=== PATIENT | male | born 1965 | race Caucasian/White ===

== ENCOUNTER → 2017-08-16 16:09 | Outpatient (CLI) | payer BC, SELFPAY ==
[2017-08-16 17:53] LABS: Absolute Lymphocyte Count 4.05 X10^3/ul (0.83-4.51); Absolute Neutrophil Count 4.4 X10^3/uL (2.0-7.7); Basophil# 0.08 X10^3/uL; Basophil% 0.8 % (0-1); Eosinophil# 0.31 X10^3/uL; Eosinophils% 3.2 % (0-5); Hematocrit 43.2 % (40-54); Hemoglobin 14.7 g/dl (13.0-16.5); Lymphocyte # 4.05 X10^3/ul (4.0); Mean Corpuscular Hgb 31.1 pg (27.0-32.0); Mean Corpuscular Volume 91.5 fL (80-94); Monocyte# 0.74 X10^3/uL; Monocyte% 7.7 % (0-10); Neutrophil # 4.44 X10^3/uL (2.7-7.7); Platelet Count 320 K/mm3 (150-450); RBC Distribution Width CV 14.4 % (11.6-14.6); RBC Distribution Width SD 47.2 fl (35.1-43.9); Red Blood Count 4.72 M/mm3 (4.6-6.2); White Blood Count 9.7 K/mm3 (4.4-11.0)
[2017-08-16 17:55] LABS: POSITIVE COUNT NO; POSITIVE DIFFERENTIAL NO; POSITIVE MORPHOLOGY NO
[2017-08-16 18:06] LABS: CRP 8.19 mg/L (0.0-3.0)
[2017-08-16 18:54] LABS: Erythrocyte Sedimentation Rate 17 mm/hr (0-20)
== END ==
PROVIDERS: Family Provider Family Medicine; PCP Family Medicine; Visit Provider Specialist
DX: T84.032A Mechanical loosening of internal right knee prosthetic joint, initial encounter (principal)
CPT/HCPCS: 36415; 85025; 85652; 86140

== ENCOUNTER 2017-11-01 11:52 | Inpatient (IN) | payer BC, SELFPAY ==
--- NOTE | 2017-10-19 16:00 | RAD_ITS ---
STUDY: X-RAY CHEST REASON FOR EXAM: Male, 52 years old. Preop. TECHNIQUE: PA and lateral views of the chest. COMPARISON: None. FINDINGS: The lungs are clear and expanded. There is no demonstrated pleural abnormality. Normal size heart. Normal mediastinum and jose. Normal visualized pulmonary arteries. Normal visualized aortic arch and descending thoracic aorta. There are early degenerative changes and minor levoscoliosis of the lower thoracic spine. There are old healed fracture deformities of the posterolateral right 3-8 ribs. There is no demonstrated abnormality of the visualized soft tissue structures of the upper abdomen. RAD/Chest PA and Lateral IMPRESSION: No acute cardiopulmonary pathology. Electronically Signed: Clint Rivera MD at 15:02 EDT , Service support ,
--- NOTE | 2017-10-20 15:13 | SDCEKG_ITS ---
Test Reason : Blood Pressure : / mmHG Vent. Rate : 063 BPM Atrial Rate : 063 BPM P-R Int : 130 ms QRS Dur : 114 ms QT Int : 396 ms P-R-T Axes : 024 036 061 degrees QTc Int : 405 ms Normal sinus rhythm Normal ECG Confirmed by JONNY CABRERA MD ([id number]), department editor CALEB INIGUEZ ([id number] on 10/26/2017 6:27:04 PM Referred By: READER WIDST Confirmed By:OJNNY CABRERA MD
[2017-10-24 16:18] LABS: Anion Gap 7 (5-15); BUN 20 mg/dL (7-18); BUN/Creat Ratio 16.3 RATIO (10-20); Calcium,Total 8.8 mg/dL (8.5-10.1); Chloride 103 mmol/L (98-107); Creatinine, Serum 1.23 mg/dL (0.70-1.30); EST Glomerular Filtration Rate 65 mL/min (>60); Est Glom Filt Rate - Afr Amer 79 mL/min (>60); Glucose 103 mg/dL (74-106); Sodium Level 142 mmol/L (136-145)
[2017-11-01] VITALS (10 sets, daily range): BP systolic 142–165; BP diastolic 57–95; PULSE 61–82; RESP 14–18; TEMP 36.5–36.8; O2SAT 92–98; BMI 27.6
[2017-11-01 12:27] LABS: Hematocrit 46.2 % (40-54); Hemoglobin 15.4 g/dl (13.0-16.5); Mean Corp Hgb Conc 33.3 g/gl (32-36); Mean Corpuscular Hgb 31.4 pg (27.0-32.0); Mean Corpuscular Volume 94.1 fL (80-94); Mean Platelet Vol. 9.8 fl (6.2-12.0); Platelet Count 274 K/mm3 (150-450); RBC Distribution Width CV 14.9 % (11.6-14.6); Red Blood Count 4.91 M/mm3 (4.6-6.2); White Blood Count 9.1 K/mm3 (4.4-11.0)
[2017-11-01 12:29] LABS: Scan Indicated on CBC? Y/N NO
[2017-11-01] MEDS: Acetaminophen 500 MG Tablet 1000 MG PO ×2 (12:31→22:00)
[2017-11-01] MEDS: oxyCODONE HCl Cr 10 MG Tablet PO (12:31)
[2017-11-01] MEDS: Celecoxib 200 MG Capsule 400 MG PO (12:32)
[2017-11-01] MEDS: Cefazolin 2 GM in 0.9% Normal Saline 100 ML IV (13:46)
--- NOTE | 2017-11-01 16:55 | PCM.OPRPT ---
Report of Operation Date of Procedure: 11/01/17 Pre-Operative Diagnosis: 1. Arthrofibrosis right TKA. 2. Right TKA aseptic loosening Post-Operative Diagnosis: 1. Arthrofibrosis right TKA. 2. Right TKA aseptic loosening Surgery/Procedure Performed:: Revision right TKA entire tibia and femoral components Description of Surgical Findings:: Stable knee with good patella tracking. sewage plant operator: Ludwin Sanchez Type of Anesthesia:: General Anesthesiologist: Kevin Johnson Special Medications: 2 g Ancef, 1 g TXA at incision, 1 g TXA closure, 10 mg Decadron, joint cocktail (5 mg Duramorph, 30 mL of 0.5% Ropivicaine, 1000 units of epinephrine, 30 mg of Toradol), 2 g Ancef after 2-1/2 hours of incision time Specimen's removed: 3 separate specimens were sent to microbiology Estimated Blood Loss (mL): 75 Fluids Replaced: 1800 mL crystalloid Description of Procedure: Implants used: Triathlon total knee implants were used Femur: Size 4 total stabilized right femoral component [id number] x 100 mm press-fit stem 25 mm security systems installer. Tibia: Size 3 universal tibial baseplate with 16 x 100 mm press fit stem with 5 mm medial augment Polyethylene: 19 mm TS X3 polyethylene insert Brief history operative indications: 52-year-old male with multiple surgical procedures on the right knee. Patient had arthrofibrosis and flexion extension mismatch in the office. She had continued pain from her total knee replacement and dysfunction. We discussed revision right total knee replacement and ruled out infection in the office. Patient demonstrated understanding of risk and benefits which include but were not limited to blood loss, DVTs, PEs, neurovascular damage, infection, general risk of anesthesia including loss of life. Patient wished to proceed was able to sign for consent. Procedure: On the date of procedure patient's right lower extremity was marked in the preoperative area. The patient was then taken back to the operating room where the patient was placed on the table in the supine position. All bony prominences were identified a well-padded. Anesthesia assumed control of the C-spine and airway and remained controlled throughout the remainder of the procedure. A tourniquet was placed on the right upper thigh and the leg was prepped in a sterile fashion. The surgeon then scrubbed at this time .Upon reentering the room right lower extremity was draped in a standard orthopedic fashion. A timeout was then called and everyone agreed upon the side, the site, the procedure to be performed, patient's identity and antibiotics given. An Esmarch bandage was used to exsanguinate the extremity and the tourniquet was placed up to 250 mmHg with the knee in flexion. A midline skin incision was made using the previous incision and extending the incision 1 cm proximally and distally and sharp dissection was taken down through skin subcutaneous tissue and fat. The standard medial parapatellar incision was made using the previous arthrotomy marked out by the previous FiberWire sutures and the patella was subluxed laterally. The deep MCL release was done and the synovectomy was performed. Synovectomy was performed starting in the medial gutter than the suprapatellar pouch and the lateral gutter re-creating the spaces. Synovium from the suprapatellar pouch was sent for culture. Next our attention was directed to the femur. TPS saw and flexible osteotome were used to sequentially separate the bone cement interface loosening the implant. Once the implant was appropriately loosened bone tamp was used to remove the implant with minimal bone loss Our attention was then turned to the tibia where the TPS saw flexible osteotome were used to sequentially separate the bone cement interface loosening the implant. Once the implant was adequately loosened stacked osteotomes were used to separate the implant from the bone and the implant was removed. At this time the cement mantle's were debrided. The patella was examined and found to be appropriate. We elected to leave the patella which was well fixed. At this time the knee was then flexed and reamers were placed reaming the femoral and tibial canals. Tibial canal was reamed to 16 mm and the reamer was left in place to make an intramedullary cut. Intramedullary was used to make a cleanup cut giving us a nice perpendicular cut to the mechanical axis. Based on the previous varus alignment we decided to make a 5 mm step cut medially and augment the medial tibial baseplate to minimize lateral tibial bone loss. Size 3 tibial baseplate was selected and fit appropriately. He was pinned in the appropriate rotation and the proximal tibia was prepped. We then reamed following the Ivan technique guide for a size B tibial cone. Trial cone was placed. The trial implant was placed and attention was directed towards the femur. Femur was then sequentially reamed to 24 mm for 125 mm stem. TCG trial was put into place and pinned in the appropriate rotation. We then took the knee throughout range of motion showing a well balanced knee in flexion and extension. The TCG trial was then used to make distal femoral and posterior condylar cuts. Once these cleanup cuts were made size 4 trial with 124 mm x 100 mm stem with a 25 mm security systems installer was placed. Knee was taken through range of motion and 19 mm polyethylene was found to be appropriate to ensure proper balancing and stability of the knee. Patella tracking, was then verified and corrected appropriately as needed. Patellar tracking was checked and deemed appropriate. Once we were happy the trial components were removed. It was copiously irrigated out with normal saline 6 L under low-pressure lavage. Cement restrictor was placed in the tibia. Bone ends were dried. Hemostasis was obtained. Cement was mixed. When the cement was ready the components were cemented into place starting with the tibia, and femur. The trial poly component was placed and the knee was placed in full extension. All excess cement was removed in the process. Once the cement had cured the tracking, alignment and balance were verified and a size 19mm polyethylene component was placed with its central pin. Once the final components were placed the wound was copiously irrigated with normal saline solution and the remainder of the periarticular injection was given. The wound was closed in a layer wallace fashion using #1 vicryl interrupted sutures for the arthrotomy, 2-0 interrupted Vicryl for the subcuticular layer and mia for final skin closure. A sterile compressive dressing was then placed. The patient was then awakened from anesthesia, transferred to the [place] and transferred to the PACU for recovery. Post op plan DVT ppx: Also, thigh high compression stockings Follow up: in office in 2 weeks for wound check PT: to start POD #0 at hospital, outpatient PT should be arranged. He will be on montelukast for history of fibrosis for 3 months. Doxycycline for 1 week as we follow cultures. My physician assistant spa director was a vital part of this case. He was important in appropriate retraction during the case, and protection of soft tissues during bony cuts. His intimate knowledge of the case and my steps aided in safe and expedient completion of the procedure as well as appropriate position of the leg during the case. He was also vital in assisting with closure under my direct supervision. Grafts/Implants Used: [place] triathlon total knee - Complications None - Admit VTE Documentation VTE Present on Admission: No VTE Mechan Device Prophylaxis: SCD's, Thigh High MILAGROS Hose VTE Pharm Prophylaxis ordered?: Yes
--- NOTE | 2017-11-01 17:04 | OP.PCM_ITS ---
Report of Operation Date of Procedure: 11/01/17 Pre-Operative Diagnosis: 1. Arthrofibrosis right TKA. 2. Right TKA aseptic loosening Post-Operative Diagnosis: 1. Arthrofibrosis right TKA. 2. Right TKA aseptic loosening Surgery/Procedure Performed:: Revision right TKA entire tibia and femoral components Description of Surgical Findings:: Stable knee with good patella tracking. depilatory painter: Ludwin Sanchez Type of Anesthesia:: General Anesthesiologist: Kevin Johnson Special Medications: 2 g Ancef, 1 g TXA at incision, 1 g TXA closure, 10 mg Decadron, joint cocktail (5 mg Duramorph, 30 mL of 0.5% Ropivicaine, 1000 units of epinephrine, 30 mg of Toradol), 2 g Ancef after 2-1/2 hours of incision time Specimen's removed: 3 separate specimens were sent to microbiology Estimated Blood Loss (mL): 75 Fluids Replaced: 1800 mL crystalloid Description of Procedure: Implants used: Triathlon total knee implants were used Femur: Size 4 total stabilized right femoral component [id number] x 100 mm press- fit stem 25 mm house repairer. Tibia: Size 3 universal tibial baseplate with 16 x 100 mm press fit stem with 5 mm medial augment Polyethylene: 19 mm TS X3 polyethylene insert Brief history operative indications: 52-year-old male with multiple surgical procedures on the right knee. Patient had arthrofibrosis and flexion extension mismatch in the office. She had continued pain from her total knee replacement and dysfunction. We discussed revision right total knee replacement and ruled out infection in the office. Patient demonstrated understanding of risk and benefits which include but were not limited to blood loss, DVTs, PEs, neurovascular damage, infection, general risk of anesthesia including loss of life. Patient wished to proceed was able to sign for consent. Procedure: On the date of procedure patient's right lower extremity was marked in the preoperative area. The patient was then taken back to the operating room where the patient was placed on the table in the supine position. All bony prominences were identified a well-padded. Anesthesia assumed control of the C- spine and airway and remained controlled throughout the remainder of the procedure. A tourniquet was placed on the right upper thigh and the leg was prepped in a sterile fashion. The surgeon then scrubbed at this time .Upon reentering the room right lower extremity was draped in a standard orthopedic fashion. A timeout was then called and everyone agreed upon the side, the site, the procedure to be performed, patient's identity and antibiotics given. An Esmarch bandage was used to exsanguinate the extremity and the tourniquet was placed up to 250 mmHg with the knee in flexion. A midline skin incision was made using the previous incision and extending the incision 1 cm proximally and distally and sharp dissection was taken down through skin subcutaneous tissue and fat. The standard medial parapatellar incision was made using the previous arthrotomy marked out by the previous FiberWire sutures and the patella was subluxed laterally. The deep MCL release was done and the synovectomy was performed. Synovectomy was performed starting in the medial gutter than the suprapatellar pouch and the lateral gutter re- creating the spaces. Synovium from the suprapatellar pouch was sent for culture. Next our attention was directed to the femur. TPS saw and flexible osteotome were used to sequentially separate the bone cement interface loosening the implant. Once the implant was appropriately loosened bone tamp was used to remove the implant with minimal bone loss Our attention was then turned to the tibia where the TPS saw flexible osteotome were used to sequentially separate the bone cement interface loosening the implant. Once the implant was adequately loosened stacked osteotomes were used to separate the implant from the bone and the implant was removed. At this time the cement mantle's were debrided. The patella was examined and found to be appropriate. We elected to leave the patella which was well fixed. At this time the knee was then flexed and reamers were placed reaming the femoral and tibial canals. Tibial canal was reamed to 16 mm and the reamer was left in place to make an intramedullary cut. Intramedullary was used to make a cleanup cut giving us a nice perpendicular cut to the mechanical axis. Based on the previous varus alignment we decided to make a 5 mm step cut medially and augment the medial tibial baseplate to minimize lateral tibial bone loss. Size 3 tibial baseplate was selected and fit appropriately. He was pinned in the appropriate rotation and the proximal tibia was prepped. We then reamed following the Ivan technique guide for a size B tibial cone. Trial cone was placed. The trial implant was placed and attention was directed towards the femur. Femur was then sequentially reamed to 24 mm for 125 mm stem. TCG trial was put into place and pinned in the appropriate rotation. We then took the knee throughout range of motion showing a well balanced knee in flexion and extension. The TCG trial was then used to make distal femoral and posterior condylar cuts. Once these cleanup cuts were made size 4 trial with 124 mm x 100 mm stem with a 25 mm house repairer was placed. Knee was taken through range of motion and 19 mm polyethylene was found to be appropriate to ensure proper balancing and stability of the knee. Patella tracking, was then verified and corrected appropriately as needed. Patellar tracking was checked and deemed appropriate. Once we were happy the trial components were removed. It was copiously irrigated out with normal saline 6 L under low-pressure lavage. Cement restrictor was placed in the tibia. Bone ends were dried. Hemostasis was obtained. Cement was mixed. When the cement was ready the components were cemented into place starting with the tibia, and femur. The trial poly component was placed and the knee was placed in full extension. All excess cement was removed in the process. Once the cement had cured the tracking, alignment and balance were verified and a size 19mm polyethylene component was placed with its central pin. Once the final components were placed the wound was copiously irrigated with normal saline solution and the remainder of the periarticular injection was given. The wound was closed in a layer wallace fashion using #1 vicryl interrupted sutures for the arthrotomy, 2-0 interrupted Vicryl for the subcuticular layer and mia for final skin closure. A sterile compressive dressing was then placed. The patient was then awakened from anesthesia, transferred to the r[place] and transferred to the PACU for recovery. Post op plan DVT ppx: Also, thigh high compression stockings Follow up: in office in 2 weeks for wound check PT: to start POD #0 at hospital, outpatient PT should be arranged. He will be on montelukast for history of fibrosis for 3 months. Doxycycline for 1 week as we follow cultures. My physician assistant mechanic was a vital part of this case. He was important in appropriate retraction during the case, and protection of soft tissues during bony cuts. His intimate knowledge of the case and my steps aided in safe and expedient completion of the procedure as well as appropriate position of the leg during the case. He was also vital in assisting with closure under my direct supervision. Grafts/Implants Used: [place] triathlon total knee - Complications None - Admit VTE Documentation VTE Present on Admission: No VTE Mechan Device Prophylaxis: SCD's, Thigh High MILAGROS Hose VTE Pharm Prophylaxis ordered?: Yes
[2017-11-01] MEDS: Lactated Ringers 1,000 ML 999 ML IV (17:51)
[2017-11-01] MEDS: Scopolamine 1mg/72hr Patch 1 PATCH TD (17:52)
--- NOTE | 2017-11-01 17:55 | RAD_ITS ---
STUDY: X-RAY - RIGHT KNEE REASON FOR EXAM: Male, 52 years old. Postop TECHNIQUE: 2 view(s) of the knee. COMPARISON: None. FINDINGS: Status post total right knee replacement. The hardware components are well aligned. Post surgical changes in the adjacent soft tissue. Skin mia are present anteriorly.. RAD/Knee 1 or 2 Views IMPRESSION: Status post total replacement of the knee with postsurgical changes. Electronically Signed: Aden Alonso DO at 19:53 EDT Tel [phone], Service support ,
[2017-11-01] MEDS: Morphine 2 MG/ML Syringe IV ×2 (20:39→23:18)
[2017-11-01] MEDS: Lactated Ringers 1,000 ML 125 ML IV (21:20)
[2017-11-01] MEDS: Ketorolac 15 MG/ML Vial IV (21:58)
[2017-11-01] MEDS: Cefazolin 1 GM/50 ML BAG IV (21:58)
[2017-11-01] MEDS: Doxycycline 100 MG CAPSULE PO (21:59)
[2017-11-01] MEDS: Senna/Docusate Sodium 1 Tablet 2 TABLET PO (22:00)
[2017-11-02 05:05] VITALS: BP 141/72; PULSE 53; RESP 18; TEMP 36.8; O2SAT 95
[2017-11-02] MEDS: Rivaroxaban 10 MG Tablet PO (05:12)
[2017-11-02] MEDS: Acetaminophen 500 MG Tablet 1000 MG PO ×3 (05:12→22:22)
[2017-11-02] MEDS: Cefazolin 1 GM/50 ML BAG IV (05:13)
[2017-11-02 06:24] LABS: Hematocrit 38.6 % (40-54); Hemoglobin 12.7 g/dl (13.0-16.5); Mean Corp Hgb Conc 32.9 g/gl (32-36); Mean Corpuscular Hgb 31.4 pg (27.0-32.0); Mean Corpuscular Volume 95.3 fL (80-94); Mean Platelet Vol. 10.2 fl (6.2-12.0); Platelet Count 229 K/mm3 (150-450); RBC Distribution Width CV 14.7 % (11.6-14.6); RBC Distribution Width SD 49.8 fl (35.1-43.9); Red Blood Count 4.05 M/mm3 (4.6-6.2); White Blood Count 13.8 K/mm3 (4.4-11.0)
[2017-11-02 06:30] LABS: Scan Indicated on CBC? Y/N NO
[2017-11-02 06:33] LABS: Anion Gap 6 (5-15); BUN 18 mg/dL (7-18); BUN/Creat Ratio 13.6 RATIO (10-20); Calcium,Total 8.4 mg/dL (8.5-10.1); Chloride 103 mmol/L (98-107); Creatinine, Serum 1.32 mg/dL (0.70-1.30); EST Glomerular Filtration Rate 60 mL/min (>60); Est Glom Filt Rate - Afr Amer 73 mL/min (>60); Estimated Creatinine Clearance 61.89 ml/min; Glucose 115 mg/dL (74-106); Potassium 4.4 mmol/L (3.5-5.1); Sodium Level 138 mmol/L (136-145)
--- NOTE | 2017-11-02 07:03 | PN.ORTHO_ITS ---
Subjective: The patient was resting in bed upon examination. Patient denies any chest pain , shortness of breath, dizziness, lightheadedness, nausea or vomiting, or calf pain. Pain is controlled on medications. No adverse overnight events. Patient does report pain in his right knee since surgery. Plan will be for patient to be discharged home when medically ready. Patient will begin outpatient physical therapy. Objective: Vital signs stable and afebrile. Patient is able to plantarflex and dorsiflex actively. Sensation is intact to light touch to saphenous, sural, superficial and deep peroneal, and tibial distribution. Dressing is clean dry and intact. Negative Homans bilaterally, negative signs and symptoms of DVT. - Physical Exam General: Alert, Oriented x3, Cooperative, No apparent distress Vital Signs Temp Pulse Resp BP Pulse Ox 98.3 F 53 L 18 141/72 H 95 11/02/17 05:05 11/02/17 05:05 11/02/17 05:05 11/02/17 05:05 11/02/17 05:05 Oxygen Flow Rate (L/min) 2 Oxygen Delivery Method Room Air Weight: 84.82 kg Body Mass Index (BMI) 27.6 Intake and Output for Last 24 Hours 10/31/17 11/01/17 11/02/17 23:59 23:59 23:59 Intake Total 2500 / 2500 1496 / 1496 Output Total 850 / 850 Balance 2500 / 2500 646 / 646 Laboratory Tests Past 24 Hrs 11/01/17 11/02/17 11/02/17 12:10 05:25 05:25 WBC 9.1 13.8 H RBC 4.91 4.05 L Hgb 15.4 12.7 L Hct 46.2 38.6 L MCV 94.1 H 95.3 H MCH 31.4 31.4 MCHC 33.3 32.9 RDW 14.9 H 14.7 H RDW Differential 51.0 H 49.8 H Plt Count 274 229 MPV 9.8 10.2 Sodium 138 Potassium 4.4 Chloride 103 Carbon Dioxide 29.0 Anion Gap 6 BUN 18 Creatinine 1.32 H Estim Creat Clear Calc 61.89 Est GFR (MDRD) Af Amer 73 Est GFR (MDRD) Non-Af 60 BUN/Creatinine Ratio 13.6 Glucose 115 H Calcium 8.4 L Medical Necessity - Tobacco Use Smoking Status: Never smoker Assessment/Plan 1. S/P revision right total knee arthroplasty POD #1 2. Continue Pain Medications: Tylenol and OxyIR 3. DVT Prophylaxis: Xarelto 4. PT/OT: Weightbearing as tolerated 5. H & H: 12.7/38.6, asymptomatic 6. Leukocytosis: Currently 13.8, afebrile. Patient did receive Decadron intraoperatively. 7. Continue antibiotics while following cultures: Currently on doxycycline. Cultures are pending 8. Encouraged Incentive Spirometry 9. History of arthrofibrosis: Patient has been placed on Montelukast for 3 months postoperatively 10. Disposition: Plan will be for possible discharge home tomorrow with outpatient physical therapy.
[2017-11-02] MEDS: Ketorolac 15 MG/ML Vial IV ×2 (07:24→17:03)
[2017-11-02] MEDS: hydroCHLOROthiazide 25 MG Tablet PO (08:44)
[2017-11-02] MEDS: Senna/Docusate Sodium 1 Tablet 2 TABLET PO ×2 (08:45→22:22)
[2017-11-02] MEDS: oxyCODONE 5 MG Tablet PO ×4 (08:45→22:23)
[2017-11-02] MEDS: Clopidogrel Bisulfate 75 MG Tablet PO (08:45)
[2017-11-02] MEDS: Famotidine 20 MG Tablet PO (08:45)
[2017-11-02] MEDS: Loratadine 10 MG Tablet PO (08:45)
[2017-11-02 08:48] VITALS: BP 142/71; PULSE 63; RESP 18; TEMP 36.8; O2SAT 98
--- NOTE | 2017-11-02 10:40 | CASEMGMT ---
Face to Face with patient for initial transition planning/care coordination assessment. ANIYAH KELSEY introduced self and role at [facility], pt voices understanding and consents to assessment at this time. Pt is lying in bed in some pain at this time. Pt is A/O x4 at this time and answers all questions appropriately at this time. Care providers, pharmacy, and demographics verified. See attached link. Pt voices no further concerns/needs at this time. Advised pt to ask for CM for any further questions/concerns/needs arise, voices understanding. [facility] faxing therapy order to [facility] for pt at this time. PLAN: Home w/ outpt therapy at [facility] ANIYAH KELSEY
[2017-11-02 11:07] VITALS: PULSE 80
[2017-11-02 11:16] VITALS: BP 131/70; PULSE 58
[2017-11-02] MEDS: Doxycycline 100 MG CAPSULE PO ×2 (11:17→22:22)
[2017-11-02] MEDS: HYDROCHLOROTHIAZIDE 12.5 MG CAPSULE PO (11:19)
[2017-11-02] MEDS: Losartan Potassium 100 MG Tablet PO (11:19)
[2017-11-02 13:54] VITALS: BP 134/66; PULSE 64; RESP 18; TEMP 36.9; O2SAT 100
[2017-11-02] MEDS: Morphine 2 MG/ML Syringe IV ×2 (15:34→20:07)
[2017-11-02] MEDS: Montelukast 10 MG Tablet PO (16:59)
[2017-11-02 20:15] VITALS: BP 161/71; PULSE 65; RESP 18; TEMP 36.9; O2SAT 99
[2017-11-03] MEDS: oxyCODONE 5 MG Tablet PO ×3 (02:29→12:18)
[2017-11-03 02:32] VITALS: BP 155/79; PULSE 68; RESP 18; TEMP 36.6; O2SAT 100
[2017-11-03] MEDS: Morphine 2 MG/ML Syringe IV ×2 (03:39→06:33)
[2017-11-03] MEDS: Acetaminophen 500 MG Tablet 1000 MG PO (06:00)
[2017-11-03] MEDS: Rivaroxaban 10 MG Tablet PO (06:01)
[2017-11-03 06:02] LABS: Hemoglobin 12.3 g/dl (13.0-16.5); Mean Corp Hgb Conc 33.2 g/gl (32-36); Mean Corpuscular Hgb 31.6 pg (27.0-32.0); Mean Corpuscular Volume 95.1 fL (80-94); Mean Platelet Vol. 10.5 fl (6.2-12.0); Platelet Count 232 K/mm3 (150-450); RBC Distribution Width CV 14.9 % (11.6-14.6); RBC Distribution Width SD 49.8 fl (35.1-43.9); Red Blood Count 3.89 M/mm3 (4.6-6.2); White Blood Count 13.4 K/mm3 (4.4-11.0)
[2017-11-03 06:06] LABS: Scan Indicated on CBC? Y/N NO
[2017-11-03 07:15] VITALS: O2SAT 95
[2017-11-03 08:30] VITALS: BP 157/88; PULSE 88; RESP 18; TEMP 36.7; O2SAT 96
--- NOTE | 2017-11-03 08:32 | NURSING ---
pt c/o poor pain relief, requesting #2, 10 mg percocets-states that is the only thing that will help-states that is what pain management prescibed mealso states haven't seen pain management in 6 months-pt encouraged to keep right leg in good alignment and pt refusing to do that, pt also refusing to use [facility] -this nurse spoke to therapy and WOLF chris reguarding pt complaints and unwillingness to follow instructions
[2017-11-03] MEDS: Clopidogrel Bisulfate 75 MG Tablet PO (08:37)
[2017-11-03] MEDS: Famotidine 20 MG Tablet PO (08:37)
[2017-11-03] MEDS: HYDROCHLOROTHIAZIDE 12.5 MG CAPSULE PO (08:37)
[2017-11-03] MEDS: Losartan Potassium 100 MG Tablet PO (08:37)
[2017-11-03] MEDS: Doxycycline 100 MG CAPSULE PO (08:37)
[2017-11-03] MEDS: Senna/Docusate Sodium 1 Tablet 2 TABLET PO (08:37)
[2017-11-03] MEDS: Loratadine 10 MG Tablet PO (08:37)
--- NOTE | 2017-11-03 09:25 | PN.ORTHO_ITS ---
Subjective: The patient was sitting in bed upon examination. Patient denies any chest pain , shortness of breath, dizziness, lightheadedness, nausea or vomiting, or calf pain. No adverse overnight events. Patient states he has been struggling with the pain and had difficult time sleeping. Nursing states patient required IV morphine overnight. This is patient's fifth surgery on his right knee. Patient states he has been seen in pain management approximately 6 months ago but has never followed back with them. Patient is also wishing to go home today. Objective: Vital signs stable and afebrile. Patient is able to plantarflex and dorsiflex actively. Sensation is intact to light touch to saphenous, sural, superficial and deep peroneal, and tibial distribution. Dressing is clean dry and intact. Negative Homans bilaterally, negative signs and symptoms of DVT. - Physical Exam General: Alert, Oriented x3, Cooperative, No apparent distress Vital Signs Temp Pulse Resp BP Pulse Ox 98.0 F 88 18 147/80 H 96 11/03/17 08:30 11/03/17 08:30 11/03/17 08:30 11/03/17 08:30 11/03/17 08:30 Oxygen Flow Rate (L/min) 2 Oxygen Delivery Method Room Air Weight: 84.82 kg Body Mass Index (BMI) 27.6 Intake and Output for Last 24 Hours 11/01/17 11/02/17 11/03/17 23:59 23:59 23:59 Intake Total 2500 / 2500 1896 / 1896 200 / 200 Output Total 850 / 850 850 / 850 Balance 2500 / 2500 1046 / 1046 -650 / -650 Microbiology Past 72 Hours 11/01/17 Unknown Gram Stain - Final Tissue - Knee Wound Culture - Preliminary No growth-Final to follow 11/01/17 Unknown Gram Stain - Final Tissue - Knee Wound Culture - Preliminary No growth-Final to follow 11/01/17 Unknown Gram Stain - Final Tissue - Knee Wound Culture - Preliminary No growth-Final to follow Laboratory Tests Past 24 Hrs 11/03/17 05:12 WBC 13.4 H RBC 3.89 L Hgb 12.3 L Hct 37.0 L MCV 95.1 H MCH 31.6 MCHC 33.2 RDW 14.9 H RDW Differential 49.8 H Plt Count 232 MPV 10.5 Medical Necessity - Tobacco Use Smoking Status: Never smoker Assessment/Plan 1. S/P revision right total knee arthroplasty POD #2 2. Continue Pain Medications: Tylenol and OxyIR. MS Contin 15 mg twice daily was added to patient's pain regimen today. 3. DVT Prophylaxis: Xarelto 4. PT/OT: Weightbearing as tolerated 5. H & H: 12.3/37.0, asymptomatic 6. Leukocytosis: currently 13.4, afebrile. Patient did receive Decadron intraoperatively. 7. Continue antibiotics while following cultures: Currently on doxycycline. Cultures are without growth. Will continue to follow. 8. Encouraged Incentive Spirometry 9. History of arthrofibrosis: Patient has been placed on Montelukast for 3 months postoperatively 10. Disposition: Patient is adamant he go home today. I discussed with him I will add MS Contin to pain regimen. If patient tolerates physical therapy and pain is improved plan will be for discharge home today with outpatient physical therapy. Patient will follow-up per postop instructions. Prescriptions are attached to chart.
[2017-11-03] MEDS: morphine SR 15 MG Tablet PO (09:29)
--- NOTE | 2017-11-03 09:30 | PCM.DC.TKR ---
Discharge Diet: No Restrictions Discharge Activity: May Not Drive May shower in (days): 1 - Turned dressing away from water Ice area for (Minutes): 20 - every hour while awake. Weight Bearing Status: Weight bearing as tolerated Elevate: Operative Extremity Additional Activity Instructions:: Wear elastic stockings for 2 weeks after your surgery. Call your doctor if your incision/area has: Continuous Slow Oozing, Sudden Increased Bleeding, Increased Pain/ Swelling, Increased Redness, Foul Smelling Discharge Call your doctor if you observe: Fever of 101 or Higher, Coldness, Increased Pain, Numbness or Tingling, Change in Color, Calf discomfort, Uncontrolled pain Remove Dressing in (days):: 3 - Okay to remove dressing on November 06, 2017 Additional Instructions: Follow [facility] postop instructions Allergies/Adverse Reactions: Allergies amlodipine besylate [From Lotrel] Allergy (Verified 10/25/14 14:28) Unknown benazepril HCl [From Lotrel] Allergy (Verified 10/25/14 14:28) Unknown meperidine HCl [From Demerol] Allergy (Verified 10/25/14 14:28) Unknown Medications to take at Discharge Clopidogrel Bisulfate [Plavix] 75 mg PO DAILY 11/01/17 Hydrochlorothiazide [Hctz] 25 mg PO DAILY 11/01/17 Loratadine [Allergy Relief] 10 mg PO DAILY 11/01/17 Olmesartan/Hydrochlorothiazide [Benicar Hct 40-12.5 MG Tab] 1 tab PO DAILY 11/01/17 Acetaminophen [Tylenol] 1,000 mg PO Q8 #90 tab 11/03/17 Doxycycline 100 mg PO BID #12 cap 11/03/17 Montelukast [Singulair] 10 mg PO DAILY@1700 #90 tab 11/03/17 Oxycodone [Oxyir] 5 - 10 mg PO Q4H PRN PRN 7 Days #84 tab 11/03/17 Rivaroxaban [Xarelto] 10 mg PO DAILY@0600 #12 tab 11/03/17 Senna/Docusate Sodium [Senokot-S] 2 tab PO BID #20 tab 11/03/17 morphine SR tablet [Ms Contin] 15 mg PO BID 5 Days #10 tab 11/03/17 The following prescriptions were given: Oxycodone [Oxyir] 5 - 10 mg PO Q4H PRN PRN 7 Days #84 tab PRN Reason: Mod-Severe Pain (4-02/22) Acetaminophen [Tylenol] 1,000 mg PO Q8 #90 tab Montelukast [Singulair] 10 mg PO DAILY@1700 #90 tab Rivaroxaban [Xarelto] 10 mg PO DAILY@0600 #12 tab Doxycycline 100 mg PO BID #12 cap morphine SR tablet [Ms Contin] 15 mg PO BID 5 Days #10 tab Senna/Docusate Sodium [Senokot-S] 2 tab PO BID #20 tab Primary Care Physician: Vivi Chua MD [Primary Care Provider] - Please Follow Up With: Outpatient Therapy-PT When: 11/04/17 @ 1:00 pm Please Follow Up With: Ludwin Sanchez PA-C When: 11/14/17 @ 10:30 am
== END 2017-11-03 14:22 | disposition home or self-care (01) | DRG 468 ==
LOC: ACINP 11:53 → MS3 15:45
PROVIDERS: Admitting Provider Specialist; Family Provider Family Medicine; PCP Family Medicine; Visit Provider Specialist
PROC: 0SPC0JZ Removal of Synthetic Substitute from Right Knee Joint, Open Approach (ICD-10-PCS; principal; 2017-11-01 13:35)
DX: T84.82XA Fibrosis due to internal orthopedic prosthetic devices, implants and grafts, initial encounter (principal); T84.032A Mechanical loosening of internal right knee prosthetic joint, initial encounter; F17.210 Nicotine dependence, cigarettes, uncomplicated; I10 Essential (primary) hypertension; E66.3 Overweight; Z68.26 Body mass index [BMI] 26.0-26.9, adult
CPT/HCPCS: 36415; 71046; 73560; 80048; 85027; 87015; 87070; 87075; 87081; 87102; 87116; 87205; 87206; 93005; 97116; 97162; 97165; 97530; 97802; 99251; C1776; J7120; G0463; J2405

== ENCOUNTER 2017-12-12 13:00 | Outpatient (RCR) | payer BC, SELFPAY ==
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
--- NOTE | 2018-02-07 11:05 | HP.PT.NRP ---
HP - Discharge Summary (1) - Patient Information OMKAR ROJAS was seen in my office for initial evaluation on 11/09/17. The following Plan of Care was established for this patient: Initial Frequency: 3x /Week Initial Duration: 4 Weeks - Anticipated Interventions Patient/Client Instruction: Educate patient on: Benefits of Fitness Program For the Purpose of:: To improve ability to perform ADL's Therapeutic Exercise to Include: Strength training, Endurance training, Balance training, Agility training, Body mechanics, Flexibilty training, Gait and locomotor training, Passive ROM, Active ROM For the Purpose of:: To improve muscle performance and motor function Functional Training to Include: Gait training TENS: Yes Cryotherapy (ice pack, ice massage): Yes Thermo therapy (hot pack): Yes Ultrasound (thermal/non thermal): No This patient was last seen in our office . Pertinent comments regarding their Physical therapy will appear below: Patient has not attended physical therapy in over 6 weeks. At this time patient is appropriate for d/c and return to MD as needed. At this point I will be discontinuing this patient from physical therapy. I would be happy to see this patient again in the future if found appropriate by the physician. Thank you! Malou Malik
== END 2017-12-12 19:00 | disposition home or self-care (01) ==
LOC: PT 13:00
PROVIDERS: Family Provider Family Medicine; PCP Family Medicine; Visit Provider Specialist
DX: Z96.651 Presence of right artificial knee joint (principal); Z47.1 Aftercare following joint replacement surgery
CPT/HCPCS: 97110; 97162